=== PATIENT | female | born 1985 | race American Indian/Alaskan Native ===

== ENCOUNTER 2020-07-09 10:06 | Day surgery (SDC) | payer OTHER ==
[~2020-07-09 10:06] MED LIST: ACETAMINOPHEN 500 MG TAB PO SCH; LACTATED RINGERS 1,000 ML IV SCH; MIDAZOLAM 2 MG/2 ML INJ IV NR; SODIUM CHLORIDE 0.9% IRR 1,500 ML BOTTLE IR ONE
[2020-07-09] MEDS ORDERED: HYDROmorphone 1 MG/1 ML INJ ONE (10:51)
[2020-07-09] MEDS ORDERED: propofoL 200 MG/20 ML VIAL IV ONE (10:52)
[2020-07-09] MEDS ORDERED: LIDOCAINE MPF (2%) 20 MG/1 ML VIAL 5 ML ONE (10:52)
[2020-07-09] MEDS ORDERED: ceFAZolin/Water 2 GM/20 ML 2 GM/20 ML SYRINGE IV ONE (11:00)
[2020-07-09] MEDS ORDERED: FAMOTIDINE 20 MG/2 ML INJ IV NR (11:04)
--- NOTE | 2020-07-09 11:04 | Anesthesia Consultation ---
Anesthesia Consult and Med Hx Date of service: 07/09/20 - Airway Anesthetic Teeth Evaluation: Good, Caps (upper left) ROM Head & Neck: Adequate Mental/Hyoid Distance: Adequate Mallampati Class: Class I Intubation Access Assessment: Good - Pre-Operative Health Status ASA Pre-Surgery Classification: ASA1 Proposed Anesthetic Plan: General - Central Nervous System Hx Psychiatric Problems: No - Hematic Hx Anemia: No - Other Systems Hx Cancer: No
--- NOTE | 2020-07-09 11:04 | Anesthesia Day of Surgery ---
Anesthesia Day of Surgery - Day of Surgery Patient Examined: Yes Patient H&P Reviewed: Yes Patient is NPO: Yes
[2020-07-09] MEDS ORDERED: HYDROmorphone 1 MG/1 ML INJ IV PRN (11:17)
[2020-07-09] MEDS ORDERED: ONDANSETRON 4 MG/2 ML INJ IV PRN (11:17)
--- NOTE | 2020-07-09 11:28 | Short Stay Summary ---
Short Stay Documentation Date of service: 07/09/20 Narrative H&P: 35-year-old -0-4-0 with a history of recurrent left Bartholin abscess. The patient underwent a recent incision and drainage with recollection of the fluid. She is elected to undergo surgical management. - History Principal diagnosis: Bartholin abscess Past Medical History: other (Bartholin abscess) Past Surgical History: No surgical history Social history: single - Allergies and Medications Current Medications: Allergies No Known Allergies Allergy (Unverified 07/04/20 14:09) Home Medications Medication Instructions Recorded Confirmed Last Taken Type No Known Home Medications [No 07/04/20 07/04/20 Unknown History Reported Home Medications] Active Medications Acetaminophen (Acetaminophen 500 Mg Tab) 1,000 mg PO PREOP GIOVANNA Stop: 07/09/20 20:00 Last Admin: 07/09/20 10:52 Dose: 1,000 mg Documented by: Famotidine (Famotidine 20 Mg/2 Ml Inj) 20 mg IV ONCE NR Stop: 07/09/20 12:30 Hydromorphone HCl (Hydromorphone 1 Mg/1 Ml Inj) 0.5 mg IV Q10MIN PRN PRN Reason: Pain , Severe (7-10) Stop: 07/10/20 11:16 Lactated Ringer's (Lactated Ringers) 1,000 mls @ 100 mls/hr IV DIRECT GIOVANNA Stop: 07/09/20 23:59 Last Admin: 07/09/20 10:52 Dose: 100 mls/hr Documented by: Midazolam HCl (Midazolam 2 Mg/2 Ml Inj) 2 mg IV PREOP NR Stop: 07/09/20 23:00 Ondansetron HCl (Ondansetron 4 Mg/2 Ml Inj) 4 mg IV ONCE PRN PRN Reason: Nausea And Vomiting - Physical exam General appearance: no acute distress Integumentary: no rash HEENT: Atraumatic Lungs: Clear to auscultation Breasts: deferred Heart: Regular rate Gastrointestinal: normal Female Genitourinary: deferred - Brief post op/procedure progress note Date of procedure: 07/09/20 Pre-op diagnosis: Bartholin gland abscess Post-op diagnosis: same Procedure: Marsupialization of Bartholin gland Anesthesia: GETA Surgeon: DOM SUAREZ Estimated blood loss: minimal Pathology: none Condition: stable - Hospital course Hospital course: Patient was admitted the day of surgery underwent marsupialization of a Bartholin gland. Please see operative note for details of surgery. Her postoperative course was uneventful. - Disposition Condition at discharge: Good Disposition: DC-01 TO HOME OR SELFCARE Short Stay Discharge Plan Activity: other (Pelvic rest for 3 to 4 weeks) Diet: regular Additional Instructions: Schedule follow-up with Dr. Saint Abdul in 4 weeks
[2020-07-09] MEDS ORDERED: LIDOCAINE 1.5% /EPINEPHRINE 1:200,000 AMP (5 ML) INFILTRATI ONE (11:52)
[2020-07-09] MEDS ORDERED: ceFAZolin/Water 2 GM/20 ML 2 GM/20 ML SYRINGE IV NR (12:00)
[2020-07-09] MEDS ORDERED: SODIUM CHLORIDE 0.9% IRR 1,500 ML BOTTLE IR ONE (12:05)
[2020-07-09] MEDS ORDERED: LIDOCAINE 1%/EPINEPHRINE 1:100,000 VIAL (20 ML) INFILTRATI ONE (12:05)
[2020-07-09] MEDS ORDERED: ONDANSETRON 4 MG/2 ML INJ ONE (12:22)
[2020-07-09] MEDS ORDERED: KETOROLAC 30 MG/1 ML INJ ONE (12:22)
[2020-07-09] MEDS ORDERED: diphenhydrAMINE 50 MG/ML VIAL ONE (13:10)
--- NOTE | 2020-07-09 13:10 | Operative Report ---
Operative Report Operative Report: Date of procedure: July 09, 2020 Pre-operative diagnosis: Left Bartholin gland abscess Post-operative diagnosis: Same as above Procedure name(s): Marsupialization of Bartholin gland Surgeon: Margie Carrillo M.D. Site Worker: None Estimated blood loss: Less than 100 mL Anesthesia: General endotracheal anesthesia Findings Left Bartholin gland abscess Indication: 35-year-old -0-4-0 with a history of a recurrent left Bartholin gland abscess. The patient has had more than 2 episodes of formation of an abscess involving her left vulva. Procedure The patient was taken to the operating room and given general tracheal anesthesia without complication. A timeout was performed that confirmed the identity and the procedure for the patient. The patient was prepped and draped in a normal sterile fashion. Lidocaine with epinephrine was injected into the surgical site. A vertical skin incision was made inside the left labia with isolation of the Bartholin gland. The gland was incised. The edges of the cyst wall were suture-ligated to the adjoining mucosa. Multiple [id number] stitches were placed with 3-0 Vicryl. Hemostasis was assured. The area was irrigated and cleaned. The patient was then successfully extubated transferred to the [facility] and taken to the recovery room in stable condition. All sponge laps and needle counts were correct x2.
[2020-07-09] MEDS ORDERED: diphenhydrAMINE 50 MG/ML VIAL IV ONE (13:20)
--- NOTE | 2020-07-09 14:34 | Post Anesthesia Evaluation ---
- Post Anesthesia Evaluation Patient Participated: Yes Airway Patent: Yes Stable Respiratory Function: Yes Nausea/Vomiting: No Temp > 96.8F: Yes Pain Manageable: Yes Adequeate Hydration: Yes Anesthesia Complications: No
[2020-07-09 16:50] VITALS: BP 117/63
== END 2020-07-09 14:35 | disposition home or self-care (01) ==
LOC: OR 10:06
PROVIDERS: ATTEND Obstetrics & Gynecology
DX: N75.1 Abscess of Bartholin's gland (principal)
CPT/HCPCS: 56440; 81025; J0690; J1170; J1200; J1885; J2250; J2405; J2704; J7120